=== PATIENT | male | born 1980 | race Caucasian/White ===

== ENCOUNTER 2016-09-21 19:56 | Emergency (ER) | payer OTHER ==
[~2016-09-21] VITALS: Ht 177.8 cm; Wt 110.9 kg
[~2016-09-21 19:56] MED LIST: DOXY100C2 PO; MULT-506 PO
[2016-09-21 20:01] VITALS: BP 150/90; TEMP 36.7; Ht 177.8 cm; Wt 110.9 kg
[2016-09-21] MEDS ORDERED: XYLOCAINE 1%/SOD BICARB 20 ML VIAL INFIL ONE (20:30)
[2016-09-21] MEDS ORDERED: DIPHTHERIA/TETANUS/PERTUSSIS 0.5 ML SYR/VIAL IM. ONE (20:45)
[2016-09-21 20:53] VITALS: PULSE 65; O2SAT 98
--- NOTE | 2016-09-22 01:59 | EMERGENCY ROOM VISIT NOTE ---
ED Visit Note First contact with patient: 20:09 Chief Complaint: I cut the top of by head. History of Present Illness: Mr. Acosta is a 36-year-old white male who ambulates into the ED accompanied by a male friend complaining of scalp laceration. Patient reports just shortly before he arrived in the ED he stood up from a crouched position and struck his head on a cabinet door sustaining a laceration to the left parietal area. He reports at the time of the injury there was no loss of consciousness and since the injury he has been having no signs of head injury or abnormal neurological symptoms. Associated with his scalp laceration he reports he has a stinging pain in the area of his laceration. He rates his discomfort 4/10. The pain is nonradiating. The pain worsens with palpation. He has not identified any alleviating factors related to the pain. He has not taken any medication for pain prior to arrival at the hospital. He denies any associated symptoms. Review of Systems: As noted above in history of present illness. Past Medical History: Patient denies. Current Medications: Doxycycline, multivitamins. Allergies to Medications: Patient denies. Social History: Patient is currently employed; he lives with his and feels safe in his home environment; he denies tobacco and alcohol use. Tetanus Immunization Status: Patient was unsure and believes it may be out of date. Physical Examination: Vital Signs: Date Time Temp Pulse Resp B/P Pulse Ox O2 Delivery O2 Flow Rate FiO2 09/21/16 20:53 65 18 98 Room Air 09/21/16 20:01 36.7 70 18 150/90 97 Room Air GENERAL: 36-year-old male in mild distress due to pain, nontoxic-appearing, afebrile and hemodynamically stable. NEUROLOGICAL: Awake, alert and oriented to person, place and time. Answering questions appropriately and following commands. Normal gait. Good hand eye coordination. No focal motor or sensory deficits. Good short-term and long- term recall. Cranial nerves II through XII grossly intact. SKIN: Warm, dry and pink. Scalp: Over the left parietal area patient has a 2.7 cm full-thickness laceration. HEENT: Atraumatic and normocephalic. Skull: No bony deformity or crepitus. Mild tenderness over his laceration area. No raccoon's eyes or gallego signs. No drainage from the ears of the nostril; no hemotympanum. No facial bony swelling or ecchymosis. PERRLA. EOMI without nystagmus. Sclera white and conjunctiva pink. No malocclusion. No intraoral trauma. Airway patent. Speech normal. BACK: No tenderness over the bony cervical and thoracic spine. Full range of motion of the cervical spine. ED Course: Patient is assessed as noted above. Wound Repair: Complexity: Basic Verbal consent was obtained after the risks and benefits were explained. The skin was prepped with betadine and a sterile field set. Wound edges of the wound was anesthetized with 2.6 ml buffered 1% lidocaine. The wound was explored for foreign bodies and none found. Copious irrigation was performed using sterile saline. With direct pressure the bleeding subsided. Debridement was not performed. The wound edges were approximated using 6 wilbur. Hemostasis and excellent approximation was achieved. Antibacterial ointment was applied. No complications and the patient tolerated the procedure well. Patient was educated about tonight's findings and instructed on his treatment plan; he verbalizes understanding and agreement with this plan. Clinical Impression: Laceration of the left parietal area. Disposition: Patient discharged home in stable condition; prior to departure he was reassessed and subjectively reported he was pain-free. Plan: Comfort measures, wound care, signs of infection and signs of head injury were discussed with the patient. Patient was encouraged to follow-up with PCP or return to the ED for signs of infection and/or staple removal in 10-12 days. Patient was encouraged return the ED for any signs of head injury or any new/ concerning symptoms.
== END 2016-09-21 20:53 | disposition home or self-care (01) ==
LOC: C.EDB 19:57 → C.EDD 20:53
DX: S01.01XA Laceration without foreign body of scalp, initial encounter (principal); W22.8XXA Striking against or struck by other objects, initial encounter; Z23 Encounter for immunization